=== PATIENT | female | born 1995 | race Two or more races ===

== ENCOUNTER 2017-02-01 20:25 | Emergency (ER) | payer OTHER, SELFPAY ==
[~2017-02-01] VITALS: Ht 170.2 cm; Wt 75.1 kg
[2017-02-01 22:16] LABS: HCG UR OBC PASS
[2017-02-01 23:11] VITALS: BP 128/75
== END 2017-02-01 23:28 | disposition home or self-care (01) ==
LOC: ED 23:22
DX: A64 Unspecified sexually transmitted disease (principal)
CPT/HCPCS: 81001; 81025; 87086; 87210; 87491; 87591; 87808; 99284